=== PATIENT | female | born 1985 | race Caucasian/White ===

== ENCOUNTER 2022-01-19 07:07 | Day surgery (SDC) | payer OTHER ==
[~2022-01-19] VITALS: Ht 165.1 cm; Wt 115.2 kg
[2022-01-19] MEDS ORDERED: MELOXICAM7.5 MG PO (07:55)
[2022-01-19] MEDS ORDERED: LYRICA50 MG PO (07:55)
[2022-01-19] MEDS ORDERED: WELLBUTRIN200 M1 PO (07:58)
[2022-01-19] MEDS ORDERED: SERTRALINE100 MG PO (07:58)
[2022-01-19] MEDS ORDERED: STOOL SOFTE1 PO (07:59)
[2022-01-19] MEDS ORDERED: EXCEDRIN PO (07:59)
[2022-01-19 11:26] VITALS: BP 142/95
== END 2022-01-19 10:17 | disposition home or self-care (01) ==
LOC: ORM 07:07
PROVIDERS: ATTEND Physical Medicine & Rehabilitation
DX: M47.816 Spondylosis without myelopathy or radiculopathy, lumbar region (principal); G89.4 Chronic pain syndrome; M54.12 Radiculopathy, cervical region

== ENCOUNTER 2022-11-09 08:37 | Day surgery (SDC) | payer OTHER ==
[~2022-11-09 08:37] MED LIST: EXCEDRIN PO; LYRICA50 MG PO; MELOXICAM7.5 MG PO; SERTRALINE100 MG PO; STOOL SOFTE1 PO; WELLBUTRIN200 M1 PO
[2022-11-10 07:08] VITALS: BP 107/61
== END 2022-11-09 11:40 | disposition home or self-care (01) ==
LOC: ORM 08:37
PROVIDERS: ATTEND Physical Medicine & Rehabilitation
DX: G89.4 Chronic pain syndrome (principal); M47.816 Spondylosis without myelopathy or radiculopathy, lumbar region